=== PATIENT | male | born 2000 | race Caucasian/White ===

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

== ENCOUNTER → 2018-04-05 13:29 | Outpatient (CLI) | payer MEDICAID ==
[2017-10-01 10:32] VITALS: BMI 24.2
[~2018-04-05 13:29] MED LIST changes: +AUGMENTIN 875-11 TAB PO; +EMLA CREAM 30 G30 G1 TOPICAL; +MIRALAX17 GM PO; +RISPERDAL2 MG PO
== END | disposition home or self-care (01) ==
LOC: D.RAD 13:00
DX: Z91.89 Other specified personal risk factors, not elsewhere classified (principal)

== ENCOUNTER 2019-02-02 09:12 | Observation (INO) | payer OTHER ==
[~2019-02-02] VITALS: Ht 175.3 cm; Wt 68.2 kg
--- NOTE | 2019-02-02 09:23 | NUR ---
POISON CONTROL CONTACTED RE: RAT POISON INGESTION. 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 RECOMMEND ACTIVATED CHARCOAL WITH SORBITOL IF PT IS ABLE TO DRINK IT. OBSERVE UNTIL CHARCOAL STOOLIS OBTAINED. RISK OF ASPIRATION IS GREATER THAN POTENTIAL BENEFITS IF PT NOT WILLING TO DRINK. RECOMMEND OBTAINING BASELINE PT/INR ET REPEAT PT/INR AT 24 AND 48 HOURS. STATES ADMISSION TO HOSPITAL IS GENERALLY NOT NECESSARY. THIS MAY VARY ACCORDING TO INDIVIDUAL CIRCUMSTANCES.
--- NOTE | 2019-02-02 09:57 | NUR ---
PT DRANK APPROX 12.5G OF THE CHARCOAL BUT WOULDNT DRINK ANY MORE. MADE AWARE.
--- NOTE | 2019-02-02 10:25 | NUR ---
BLOOD DRAWN BY MID LEVEL PRACTITIONER
[2019-02-02 10:39] LABS: HEMATOCRIT 39.1 % (42.0-54.0); HEMOGLOBIN 13.4 g/dL (13.5-17.5); MCH 29.6 pg (26.0-34.0); MCHC 34.3 g/dL (31.0-37.0); MCV 86.5 fL (80.0-100.0); MEAN PLATELET VOLUME 10.1 fL (7.4-10.4); RBC 4.52 10x6/uL (4.20-6.10); RDW 14.5 % (11.5-14.5); WBC 4.9 10x3/uL (4.8-10.8)
[2019-02-02 10:41] LABS: INR 1.2 (0.85-1.17); PROTIME 14.7 SECONDS (11.6-15.0)
[2019-02-02 10:44] LABS: PLATELET COUNT 171 10x3/uL (130-400)
[2019-02-02 10:48] LABS: ALBUMIN 3.7 g/dL (3.4-5.0); ALKALINE PHOSPHATASE 70 U/L (46-116); ALT (SGPT) 17 U/L (10-68); BILIRUBIN - TOTAL 0.33 mg/dL (0.2-1.3); CALC OSMOLALITY 282 mosm/kg (275-300); CALCIUM 8.9 mg/dL (8.5-10.1); CARBON DIOXIDE 27.7 mmol/L (21.0-32.0); CHLORIDE - SERUM 108 mmol/L (98-107); CREATININE - SERUM 0.9 mg/dL (0.6-1.3); GLUCOSE 79 mg/dL (74-106); PROTEIN - SERUM 7.3 g/dL (6.4-8.2); SODIUM 142 mmol/L (136-145); UREA NITROGEN 14 mg/dL (7-18); eGFR NON AFRICAN AMERICAN > 90 mL/min (90-120)
--- NOTE | 2019-02-02 11:29 | NUR ---
MOTHER, NAVEEN ADAN IS AT BEDSIDE. HER PHONE NUMBER IS [phone]
[2019-02-02 11:57] LABS: EOSINOPHILS 1 % (0-7); LYMPHOCYTES 48 % (15-50); MONOCYTES 14 % (2-11); NEUTROPHILS 37 % (40-80)
[2019-02-02 11:58] LABS: PLATELET ESTIMATE NORMAL
--- NOTE | 2019-02-02 14:29 | NUR ---
SPOKE TO RAJAN AT POISON CONTROL RE PT INR. WAS TOLD ELEVATED INR COULD BE R/T INGESTION YESTERDAY OR BEFORE OF THE RAT POISON. WAS ADVISED TO REPEAT INR AT 12H AND 24H AND 48HR IF STILL ELEVATED.
--- NOTE | 2019-02-02 14:41 | NUR ---
THIS RN ET ADELAIDA STEPHENS RN NOTIFIED RADHA DAWSON IN THE ICU THAT PT WOULD NOT HAVE AN IN WHEN ADMITTED TO THE ICU FROM THE ER. MOTHER STATES PT ABSOLUTELY DOES NOT TOLERATE AN IV WITHOUT PHYSICAL OR CHEMICAL RESTRAINTS.
[2019-02-02] MEDS ORDERED: REMERON30 MG PO (14:49)
[2019-02-02] MEDS ORDERED: TOPAMAX100 MG PO (17:25)
[2019-02-02] MEDS ORDERED: HALDOL5 MG PO (17:26)
[2019-02-02 18:05] VITALS: BP 104/70; Ht 175.3 cm; Wt 68.2 kg
--- NOTE | 2019-02-02 19:45 | NUR ---
PATIENT IS SITTING IN THE MIDDLE OF HIS BED WITH LEGS CROSSED, HE CAN HOLD EYE CONTACT FAIRLY WELL, HOWEVER HE IS VERY IMPULSIVE. HE DOES NOT SPEAK, MOTHER STATES THAT HE KNOWS A SMALL AMOUNT OF SIGN LANGUAGE. HE IS NOT SHOWING ANY OUTWARDLY SIGNS OF PAIN OR DISTRESS OF ANY KIND. WILL CONTINUE TO MONITOR
[2019-02-02] MEDS ORDERED: CLOMIPRAMINE HC25 MG PO (20:18)
[2019-02-02] MEDS ORDERED: VALIUM 2 MG TAB2 MG PO (20:31)
--- NOTE | 2019-02-02 23:46 | NUR ---
PATIENT DOES NOT SPEAK, UNABLE TO DO COLUMBIA SCREENING ON THIS PATIENT. THIS PATIENT IS AUTISTIC AND HIS MOTHER IS AT HIS BEDSIDE. WILL MONITOR PATIENT
[2019-02-03 04:30] LABS: BASOPHILS 0.4 % (0-2); EOSINOPHILS 3.8 % (0-7); HEMATOCRIT 41.6 % (42.0-54.0); HEMOGLOBIN 14.1 g/dL (13.5-17.5); IMMATURE GRANULOCYTES 0.3 % (0-5); LYMPHOCYTES 46.8 % (15-50); MCH 29.6 pg (26.0-34.0); MCHC 33.9 g/dL (31.0-37.0); MCV 87.4 fL (80.0-100.0); MEAN PLATELET VOLUME 10.2 fL (7.4-10.4); MONOCYTES 10.3 % (2-11); NEUTROPHILS 38.4 % (40-80); PLATELET COUNT 172 10x3/uL (130-400); RBC 4.76 10x6/uL (4.20-6.10); RDW 14.5 % (11.5-14.5)
[2019-02-03 04:31] LABS: WBC 7.1 10x3/uL (4.8-10.8)
[2019-02-03 04:48] LABS: INR 1.15 (0.85-1.17); PROTIME 14.2 SECONDS (11.6-15.0)
[2019-02-03 04:53] LABS: ALBUMIN 3.6 g/dL (3.4-5.0); ALKALINE PHOSPHATASE 70 U/L (46-116); ALT (SGPT) 19 U/L (10-68); BILIRUBIN - TOTAL 0.22 mg/dL (0.2-1.3); CALC OSMOLALITY 289 mosm/kg (275-300); CALCIUM 9.4 mg/dL (8.5-10.1); CHLORIDE - SERUM 108 mmol/L (98-107); GLUCOSE 87 mg/dL (74-106); MAGNESIUM - SERUM 2.1 mg/dL (1.8-2.4); PHOSPHOROUS 4.8 mg/dL (2.5-4.9); POTASSIUM - SERUM 4.5 mmol/L (3.5-5.1); PROTEIN - SERUM 7.1 g/dL (6.4-8.2); SODIUM 145 mmol/L (136-145); VALPROIC ACID (DEPAKOTE) 90.3 ug/mL (50.0-100.0); eGFR NON AFRICAN AMERICAN > 90 mL/min (90-120)
[2019-02-03 04:55] LABS: UREA NITROGEN 19 mg/dL (7-18)
--- NOTE | 2019-02-03 07:17 | NUR ---
PT REPORT RECEIVED FROM CLINICAL NURSING DIRECTOR NURSE. NO COMPLAINTS AT THIS TIME. NURSE LEFT BEFORE BEDSIDE REPORT COULD BE CHARTED. WILL CONTINUE TO MONITOR
--- NOTE | 2019-02-03 09:00 | NUR ---
PT IN BED. FAMILY AT BEDSIDE. WILL CONTINUE TO MONITOR
[2019-02-03 09:12] VITALS: BP 120/85
--- NOTE | 2019-02-03 11:00 | NUR ---
PT IN BED. MOM AT BEDSIDE. WILL CONTINUE TO MONITOR
--- NOTE | 2019-02-03 12:00 | NUR ---
PT UP FOR DISCHARGE PER DR ABRAHAM
--- NOTE | 2019-02-03 12:30 | NUR ---
PT DISCHARGED FROM ICU. TAKEN TO VEHICLE IN WHEEL CHAIR. PT TOLERATED WELL
== END 2019-02-03 11:30 | disposition home or self-care (01) ==
LOC: D.ER 09:12 → D.ICU 13:43 → OBSVTIME 13:43 → D.ICU 02-03 11:30
PROVIDERS: Family Medicine; ADMIT Internal Medicine Nephrology; ATTEND Internal Medicine Nephrology
DX: T65.891A Toxic effect of other specified substances, accidental (unintentional), initial encounter (principal); D64.9 Anemia, unspecified; F84.0 Autistic disorder; F90.9 Attention-deficit hyperactivity disorder, unspecified type; F50.89 Other specified eating disorder